=== PATIENT | male | born 1960 | race Caucasian/White ===

== ENCOUNTER 2017-04-27 09:38 | Emergency (ER) | payer OTHER ==
[2017-04-27 09:48] VITALS: O2SAT 95
--- NOTE | 2017-04-27 09:59 | EDPHY ---
H & P Stated Complaint: Pulled muscle in L hip 1 wk ago on inversion table Time Seen by Provider: 04/27/17 09:58 - Personal History Current Tetanus Diphtheria and Acellular Pertussis (TDAP): Yes - Medical/Surgical History Other PMH: gout - Social History Smoking Status: Never smoked Constitutional: Initial Vital Signs Temperature (C) 36.6 C 04/27/17 09:45 Heart Rate 90 04/27/17 09:45 Respiratory Rate 16 04/27/17 09:45 Blood Pressure 120/99 H 04/27/17 09:45 O2 Sat (%) 95 04/27/17 09:45 O2 Delivery Mode Room Air Allergies/Adverse Reactions: No Allergies [NKDA] Allergy (Verified 04/27/17 09:46) Home Medications: Medication Instructions Recorded Allopurinol [Allopurinol 100 MG 100 mg PO DAILY 04/27/17 (*)] Medical Decision Making - Diagnostics Imaging Results: Imaging Impressions Lumbar Spine MRI 04/27/17 10:08 Impression: Multilevel degenerative disk and degenerative joint disease in the lumbar spine. Concerning the left radiculopathy, there appears to be an extrusion or free fragment at L4-L5 causing significant encroachment on the L4 nerve root at the lateral recess and medial aspect of the neural foramina. Please see other levels of encroachment as detailed above. Also of note is there is a transitional vertebra at the lumbosacral junction. This is numbered as if there is partial lumbarization of S1. Correlation to radiography of the thoracic and lumbar spine films to document levels would be helpful. Results called and discussed with Dr. Navid Jones, on April 27, 2017 at 1308 hours. Imaging: Discussed imaging studies w/ outbound call center representative Radiologist, I viewed and interpreted images myself ED Course/Re-evaluation: CHIEF COMPLAINT: Left hip and thigh pain HISTORY OF PRESENT ILLNESS: The patient is a 56 y/o male arriving with his complaining of severe acute onset left hip pain after using an inversion table one week ago, that worsened yesterday. He has a history of right-sided sciatica that has improved with stretching exercises on his inversion table and chiropractic treatment. He had severe left hip pain after stretching on the inversion table a week ago that initially left him unable to walk, but was slowly improving. Yesterday, he tripped on the carpet causing his symptoms to worsen acutely. He has been unable to walk today due to pain. Pain is primarily located along his left lateral and anterior thigh. He denies back pain, paresthesias, weakness, or saddle anesthesia. REVIEW OF SYSTEMS: A 10 point review of systems was performed and is negative with the exception of the elements mentioned in the history of present illness. PHYSICAL EXAM: HR, BP, O2 Sat, RR. Temp noted General Appearance: Alert, well hydrated, appropriate, and appears in pain. Head: Atraumatic without scalp tenderness or obvious injury Eyes: Pupils equal, round, reactive to light and accommodation, EOMI, no trauma , no injection. Nose: Atraumatic, no rhinorrhea, clear. Throat: Mucus membranes moist. Neck: Supple, nontender, no lymphadenopathy. Respiratory: No retractions, no distress, no wheezes, and no accessory muscle use. Lungs are clear to auscultation bilaterally. Cardiovascular: Regular rate and rhythm, no murmurs, rubs, or gallops. Good capillary refill all extremities. Gastrointestinal: Abdomen is soft, nontender, non-distended, no masses, no rebound, no guarding, no peritoneal signs. Musculoskeletal: Normal active ROM of all extremities, atraumatic. Neurological: Alert, appropriate, and interactive. Nonfocal neuro exam. Skin: No rashes, good turgor, no nodules on palpation. Past medical history: Sciatica Past surgical history: noncontributory Family history: noncontributory Social history: at bedside DIAGNOSTICS/PROCEDURES/CRITICAL CARE TIME: Lumbar MRI: L4-L5 disc herniation to the left DIFFERENTIAL DIAGNOSIS: The differential diagnosis for the patient's leg pain included but was not limited to musculoskeletal pain, epidural abscess, herniated disk, spinal fracture, and intra-abdominal causes including urinary system. MEDICAL DECISION MAKING: This is a 56 y/o male with a history of right-sided sciatica who presents with a one-week history of left hip and thigh pain after using an inversion table. He is neurologically intact and his pain is not reproducible with palpation. His symptoms are consistent with lumbar radiculopathy, but he does not have associated back pain. Plan for IV, lumbar MRI, and symptom management. 1mg IV Dilaudid, 30mg IV Toradol administered. 1120: Patient continues to have pain. 5mg IV Ketamine administered. MRI pending. 1319: Reassessed patient and discussed imaging results. He has an acute L4-L5 left-sided disc herniation. He is feeling more comfortable after pain medication. Neuro exam remains normal. He will be discharged with standard radiculopathy instructions and scripts for Medrol and OxyIR. Referred to neurosurgeon as needed. Strict return precautions given. He is comfortable with this plan. - Data Points Laboratory Results: Laboratory Results 04/27/17 10:00 04/27/17 10:00 04/27/17 04/27/17 04/27/17 11: 10:00 10:00 WBC 5.33 10^3/uL 10^3/uL (3.80-9.50) RBC 5.17 10^6/uL 10^6/uL (4.40-6.38) Hgb 17.4 g/dL g/dL (13.7-17.5) Hct 47.4 % % (40.0-51.0) MCV 91.7 fL fL (81.5-99.8) MCH 33.7 pg pg (27.9-34.1) MCHC 36.7 g/dL g/dL (32.4-36.7) RDW 12.2 % % (11.5-15.2) Plt Count 126 10^3/uL L 10^3/uL (150-400) MPV 9.4 fL fL (8.7-11.7) Neut % (Auto) 74.3 % H % (39.3-74.2) Lymph % (Auto) 13.7 % L % (15.0-45.0) [place] % (Auto) 8.6 % % (4.5-13.0) Eos % (Auto) 2.6 % % (0.6-7.6) Baso % (Auto) 0.6 % % (0.3-1.7) Nucleat RBC Rel Count 0.0 % % (0.0-0.2) Absolute Neuts (auto) 3.96 10^3/uL 10^3/uL (1.70-6.50) Absolute Lymphs (auto) 0.73 10^3/uL L 10^3/uL (1.00-3.00) Absolute Monos (auto) 0.46 10^3/uL 10^3/uL (0.30-0.80) Absolute Eos (auto) 0.14 10^3/uL 10^3/uL (0.03-0.40) Absolute Basos (auto) 0.03 10^3/uL 10^3/uL (0.02-0.10) Absolute Nucleated RBC 0.00 10^3/uL 10^3/uL (0-0.01) Immature Gran % 0.2 % % (0.0-1.1) Immature Gran # 0.01 10^3/uL 10^3/uL (0.00-0.10) Sodium 141 mEq/L mEq/L (134-144) Potassium 3.9 mEq/L mEq/L (3.5-5.2) Chloride 106 mEq/L mEq/L (97-110) Carbon Dioxide 20 mEq/l L mEq/l (22-31) Anion Gap 15 mEq/L mEq/L (8-16) BUN 13 mg/dL mg/dL (7-23) Creatinine 0.9 mg/dL mg/dL (0.7-1.3) Estimated GFR > 60 Glucose 107 mg/dL H mg/dL (70-100) Calcium 9.8 mg/dL mg/dL (8.5-10.4) Urine Color YELLOW Urine Appearance CLEAR Urine pH 7.0 (5.0-7.5) Ur Specific [place] 1.017 (1.002-1.030) Urine Protein NEGATIVE (NEGATIVE) Urine Ketones TRACE H (NEGATIVE) Urine Blood NEGATIVE (NEGATIVE) Urine Nitrate NEGATIVE (NEGATIVE) Urine Bilirubin NEGATIVE (NEGATIVE) Urine Urobilinogen NEGATIVE EU EU (0.2-1.0) Ur Leukocyte Esterase NEGATIVE (NEGATIVE) Urine RBC NONE SEEN /hpf /hpf (0-3) Urine WBC 1-3 /hpf /hpf (0-3) Ur Epithelial Cells NONE SEEN /lpf /lpf (NONE-1+) Urine Mucus TRACE /lpf /lpf (NONE-1+) Urine Glucose NEGATIVE (NEGATIVE) Medications Given: Discontinued Medications Hydromorphone HCl (Dilaudid) 1 mg IVP EDNOW ONE Stop: 04/27/17 10:07 Last Admin: 04/27/17 10:22 Dose: 1 mg Hydromorphone HCl (Dilaudid) 1 mg IVP EDNOW ONE Stop: 04/27/17 11:52 Last Admin: 04/27/17 11:57 Dose: 1 mg Hydromorphone HCl (Dilaudid) 1 mg IVP EDNOW ONE Stop: 04/27/17 11:59 Last Admin: 04/27/17 12:03 Dose: 1 mg Ketamine HCl (Ketamine) 5 mg IVP EDNOW ONE Stop: 04/27/17 11:25 Last Admin: 04/27/17 11:38 Dose: 5 mg Ketorolac Tromethamine (Toradol) 30 mg IVP EDNOW ONE Stop: 04/27/17 10:09 Last Admin: 04/27/17 10:22 Dose: 30 mg Departure - Departure Disposition: Home, Routine, Self-Care Clinical Impression: Lumbar radiculopathy, Herniation of intervertebral disc between L4 and L5 Condition: Good Instructions: Lumbar Disc Herniation (ED), Lumbar Radiculopathy (ED) Additional Instructions: 1. Take Medrol as prescribed. Be sure to complete the entire prescription. 2. Use Dilaudid as prescribed when needed for severe pain. 3. Follow up with Dr. Whipple, neurosurgeon, for unimproved symptoms over the next few weeks. 4. Dr. Bush, back pain specialist, is another follow up option that can offer other treatment modalities like local injections. 5. Activity as tolerated. Normal daily movement generally helps recovery. Do not lift anything until symptoms have resolved and always practice good lifting technique to protect your back. 6. Return to the ED for leg weakness or numbness, bowel or bladder incontinence , or other worsening of condition. Referrals: Shin Whipple MD [Medical Doctor] - As per Instructions NONE *PRIMARY CARE P,. [Primary Care Provider] - As per Instructions Sd Bush MD [Medical Doctor] - As per Instructions Stand Alone Forms: Work Limited Duty Report Scribed for: Navid Jones Report Scribed by: Gayla Walters Date of Report: 04/27/17 Time of Report: 10:00
[2017-04-27] MEDS ORDERED: HYDROmorphONE/DILAUDID 1 MG/ML SYR IVP ONE ×3 (10:06→11:58)
[2017-04-27] MEDS ORDERED: KETOROLAC 30 MG/1 ML SDV IVP ONE (10:08)
[2017-04-27 10:30] LABS: % IMMATURE GRANULYOCYTES 0.2 % (0.0-1.1); ABSOLUTE IMMATURE GRANULOCYTES 0.01 10^3/uL (0.00-0.10); ADD DIFF? NO; ADD MORPH? NO; ADD SCAN? NO; ATYPICAL LYMPHOCYTE FLAG 10 (0-99); FRAGMENT RBC FLAG 0 (0-99); HEMATOCRIT 47.4 % (40.0-51.0); HEMOGLOBIN 17.4 g/dL (13.7-17.5); LEFT SHIFT FLG 0 (0-99); LIPEMIA HEMOLYSIS FLAG 90 (0-99); MEAN CELL HEMOGLOBIN 33.7 pg (27.9-34.1); MEAN CELL HEMOGLOBIN CONCENTR. 36.7 g/dL (32.4-36.7); MEAN CELL VOLUME 91.7 fL (81.5-99.8); MEAN PLATELET VOLUME 9.4 fL (8.7-11.7); PLATELET CLUMPS FLAG 0 (0-99); PLATELET COUNT 126 10^3/uL (150-400); RED BLOOD CELL COUNT 5.17 10^6/uL (4.40-6.38); RED CELL DISTRIBUTION WIDTH 12.2 % (11.5-15.2)
[2017-04-27 10:53] LABS: ANION GAP 15 mEq/L (8-16); CALCIUM 9.8 mg/dL (8.5-10.4); CARBON DIOXIDE 20 mEq/l (22-31); CHLORIDE 106 mEq/L (97-110); CREATININE 0.9 mg/dL (0.7-1.3); GLOMERULAR FILTRATION RATE > 60; GLUCOSE 107 mg/dL (70-100); POTASSIUM 3.9 mEq/L (3.5-5.2); SODIUM 141 mEq/L (134-144)
[2017-04-27] MEDS ORDERED: KETAMINE 100 MG/10 ML SYR IVP ONE (11:24)
[2017-04-27 11:36] LABS: COLOR YELLOW; LEUKOCYTE ESTERASE,URINE NEGATIVE (NEGATIVE); NITRITE,URINE NEGATIVE (NEGATIVE)
[2017-04-27 11:44] LABS: MUCUS TRACE /lpf (NONE-1+)
[2017-04-27 11:45] LABS: RBC,URINE NONE SEEN /hpf (0-3)
[2017-04-27] MEDS ORDERED: HYDROmorphONE/DILAUDID 1 MG/ML SYR ONE (11:47)
[2017-04-27 11:58] VITALS: RESP 18
[2017-04-27 13:34] VITALS: BP 122/67; PULSE 71; TEMP 98.2
[2017-04-27] MEDS ORDERED: HYDROmorphONE/DILAUDID 2 MG TAB PO ONE (13:40)
== END 2017-04-27 13:46 | disposition home or self-care (01) ==
DX: M51.16 Intervertebral disc disorders with radiculopathy, lumbar region (principal)
CPT/HCPCS: 96374; J1170; J1885

== ENCOUNTER 2017-07-04 12:56 | Observation (INO) | payer OTHER ==
--- NOTE | 2017-07-04 13:43 | EDPHY ---
H & P Stated Complaint: Passed gas when urinating this a.m.;bladder discomfort;sent in for CT Time Seen by Provider: 07/04/17 13:40 HPI/ROS: HPI: This is a 56-year-old male who presents with Chief Complaint: Passing gas during urination Location: Quality: Passing gas strain urination Duration: This morning Signs and Symptoms: No dysuria, no back pain, no penile discharge, no testicular pain, no nausea, no vomiting, no abdominal pain, no urinary hesitancy Timing: Sudden, intermittent Severity: [id number] Context: Patient complains of passing gas strain urination this morning x2. He has not urinated in the last 4 hours. He completed 3 days of Flagyl and 5 days of Ciprofloxacin; last dose for diverticulitis that was diagnosed outpatient by clinical exam. No CT imaging of the abdomen and pelvis was obtained at that time. 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 Eating and drinking normally. Patient in the currently denies pain at this time. Modifying Factors: Did not call primary care provider Comment: ROS: Constitutional: No fever, no chills, no weight loss Eyes: No blurred vision Respiratory: No shortness of breath, no cough Cardiovascular: No chest pain Gastrointestinal: No nausea, no vomiting no diarrhea Genitourinary: No dysuria Extremities: No myalgias Neurologic: No weakness, no numbness Skin: No rashes Hematologic: No bruising, no bleeding MEDICAL/SURGICAL/SOCIAL HISTORY: Denies any surgical history. . Source: Patient, Family - Personal History Current Tetanus Diphtheria and Acellular Pertussis (TDAP): Unsure - Medical/Surgical History Other PMH: gout. ?diverticulitis - Social History Smoking Status: Never smoked - Physical Exam Exam: CONSTITUTIONAL: Extremely well-appearing adult white male, awake and alert, no obvious distress HEENT: Atraumatic and normocephalic, PERRL, EOMI. Tympanic membranes clear. Oropharynx clear, no exudate and moist pink mucosa. Airway patent. No lymphadenopathy. No meningismus. Cardiovascular: Normal S1/S2, regular rate, regular rhythm, without murmur rub or gallop. PULMONARY/CHEST: Symmetrical and nontender. Clear to auscultation bilaterally Good air movement. No accessory muscle usage. ABDOMEN: Soft, nondistended, nontender, no rebound, no guarding, no peritoneal signs, no masses or organomegaly. No CVAT. EXTREMITIES: 2/2 pulses, no deformities, no clubbing, no cyanosis or edema. NEUROLOGICAL: no focal neuro deficits. GCS 15. SKIN: Warm and dry, no erythema. no rash. Good capillary refill. Constitutional: Initial Vital Signs Temperature (C) 36.7 C 07/04/17 13:00 Heart Rate 75 07/04/17 13:00 Respiratory Rate 16 07/04/17 13:00 Blood Pressure 120/85 H 07/04/17 13:00 O2 Sat (%) 94 07/04/17 13:00 O2 Delivery Mode Room Air Allergies/Adverse Reactions: No Allergies [NKDA] Allergy (Verified 07/04/17 13:05) Home Medications: Medication Instructions Recorded Allopurinol [Allopurinol 100 MG 100 mg PO 07/04/17 (*)] Ciprofloxacin [Cipro] 500 mg PO 07/04/17 metroNIDAZOLE [Flagyl 250 mg (*)] 250 mg PO 07/04/17 Medical Decision Making - Diagnostics Imaging Results: Imaging Impressions Abdomen CT 07/04/17 13:38 Impression: 1. Acute severe diverticulitis of the sigmoid colon with multiple microperforations and colovesical fistula along the anterior superior left wall of the bladder. 2. No drainable abscess or bowel obstruction. 3. Incidental cholelithiasis. Recommendation: 1. Surgical consult. 2. Follow up colonoscopy when the patient's medical condition permits. Findings and recommendations discussed with Emergency Department, TOMMY Serna, at 1511 hours on July 04, 2017. Final report concurs with initial preliminary interpretation. ED Course/Re-evaluation: Labs, urinalysis, IV fluids, CT abdomen and pelvis scan ordered Afebrile and no signs of sepsis. Urine shows no signs of infection; hematuria Labs grossly unremarkable. Called by radiologist CT scan shows extensive sigmoid diverticulitis with micro perforation extending into the bladder wall consistent with a colovesical fistula 1510: ED decision to consult for admission Spoke with surgery, Dr. Molina, and Hospitalist, Dr. Lainez, who agrees to admit patient to provide further care. Differential Diagnosis: Abdominal pain including but not limited to appendicitis, cholecystitis, gastritis and urinary tract infection. - Data Points Laboratory Results: Laboratory Results 07/04/17 13:55 07/04/17 13:55 07/04/17 07/04/17 07/04/17 13:55 13:55 13:55 WBC 6.24 10^3/uL 10^3/uL (3.80-9.50) RBC 4.59 10^6/uL 10^6/uL (4.40-6.38) Hgb 14.4 g/dL g/dL (13.7-17.5) Hct 43.4 % % (40.0-51.0) MCV 94.6 fL fL (81.5-99.8) MCH 31.4 pg pg (27.9-34.1) MCHC 33.2 g/dL g/dL (32.4-36.7) RDW 12.7 % % (11.5-15.2) Plt Count 265 10^3/uL 10^3/uL (150-400) MPV 9.2 fL fL (8.7-11.7) Neut % (Auto) 66.3 % % (39.3-74.2) Lymph % (Auto) 24.0 % % (15.0-45.0) [place] % (Auto) 6.1 % % (4.5-13.0) Eos % (Auto) 2.7 % % (0.6-7.6) Baso % (Auto) 0.6 % % (0.3-1.7) Nucleat RBC Rel Count 0.0 % % (0.0-0.2) Absolute Neuts (auto) 4.13 10^3/uL 10^3/uL (1.70-6.50) Absolute Lymphs (auto) 1.50 10^3/uL 10^3/uL (1.00-3.00) Absolute Monos (auto) 0.38 10^3/uL 10^3/uL (0.30-0.80) Absolute Eos (auto) 0.17 10^3/uL 10^3/uL (0.03-0.40) Absolute Basos (auto) 0.04 10^3/uL 10^3/uL (0.02-0.10) Absolute Nucleated RBC 0.00 10^3/uL 10^3/uL (0-0.01) Immature Gran % 0.3 % % (0.0-1.1) Immature Gran # 0.02 10^3/uL 10^3/uL (0.00-0.10) Sodium 142 mEq/L mEq/L (134-144) Potassium 3.8 mEq/L mEq/L (3.5-5.2) Chloride 102 mEq/L mEq/L (97-110) Carbon Dioxide 25 mEq/l mEq/l (22-31) Anion Gap 15 mEq/L mEq/L (8-16) BUN 9 mg/dL mg/dL (7-23) Creatinine 0.8 mg/dL mg/dL (0.7-1.3) Estimated GFR > 60 Glucose 89 mg/dL mg/dL (70-100) Calcium 9.6 mg/dL mg/dL (8.5-10.4) Total Bilirubin 0.7 mg/dL mg/dL (0.1-1.4) Conjugated Bilirubin 0.4 mg/dL mg/dL (0.0-0.5) Unconjugated Bilirubin 0.3 mg/dL mg/dL (0.0-1.1) AST 56 IU/L IU/L (17-59) ALT 61 IU/L IU/L (21-72) Alkaline Phosphatase 83 IU/L IU/L (38-126) Total Protein 7.6 g/dL g/dL (6.3-8.2) Albumin 4.1 g/dL g/dL (3.5-5.0) Lipase 60 IU/L IU/L (23-300) Urine Color YELLOW Urine Appearance CLEAR Urine pH 6.0 (5.0-7.5) Ur Specific [place] 1.010 (1.002-1.030) Urine Protein NEGATIVE (NEGATIVE) Urine Ketones NEGATIVE (NEGATIVE) Urine Blood NEGATIVE (NEGATIVE) Urine Nitrate NEGATIVE (NEGATIVE) Urine Bilirubin NEGATIVE (NEGATIVE) Urine Urobilinogen NEGATIVE EU EU (0.2-1.0) Ur Leukocyte Esterase NEGATIVE (NEGATIVE) Urine Glucose NEGATIVE (NEGATIVE) Departure - Departure Disposition: [facility] Acute Clinical Impression: Sigmoid diverticulitis, Colovesical fistula
[2017-07-04] MEDS ORDERED: IOPAMIDOL (ISOVUE-300) 100 ML BTL ONE (13:59)
[2017-07-04 14:05] LABS: % IMMATURE GRANULYOCYTES 0.3 % (0.0-1.1); ABSOLUTE IMMATURE GRANULOCYTES 0.02 10^3/uL (0.00-0.10); ADD DIFF? NO; ADD MORPH? NO; ADD SCAN? NO; ATYPICAL LYMPHOCYTE FLAG 20 (0-99); FRAGMENT RBC FLAG 0 (0-99); HEMATOCRIT 43.4 % (40.0-51.0); HEMOGLOBIN 14.4 g/dL (13.7-17.5); LEFT SHIFT FLG 0 (0-99); LIPEMIA HEMOLYSIS FLAG 80 (0-99); MEAN CELL HEMOGLOBIN 31.4 pg (27.9-34.1); MEAN CELL HEMOGLOBIN CONCENTR. 33.2 g/dL (32.4-36.7); MEAN CELL VOLUME 94.6 fL (81.5-99.8); MEAN PLATELET VOLUME 9.2 fL (8.7-11.7); PLATELET CLUMPS FLAG 0 (0-99); PLATELET COUNT 265 10^3/uL (150-400); RED BLOOD CELL COUNT 4.59 10^6/uL (4.40-6.38); RED CELL DISTRIBUTION WIDTH 12.7 % (11.5-15.2)
[2017-07-04 14:15] LABS: ALANINE AMINOTRANSFERASE 61 IU/L (21-72); ALBUMIN 4.1 g/dL (3.5-5.0); ALKALINE PHOSPHATASE 83 IU/L (38-126); ANION GAP 15 mEq/L (8-16); ASPARTATE AMINOTRANSFERASE 56 IU/L (17-59); BILIRUBIN,TOTAL 0.7 mg/dL (0.1-1.4); BILIRUBIN-CONJUGATED 0.4 mg/dL (0.0-0.5); BILIRUBIN-UNCONJUGATED 0.3 mg/dL (0.0-1.1); CALCIUM 9.6 mg/dL (8.5-10.4); CARBON DIOXIDE 25 mEq/l (22-31); CHLORIDE 102 mEq/L (97-110); CREATININE 0.8 mg/dL (0.7-1.3); GLOMERULAR FILTRATION RATE > 60; GLUCOSE 89 mg/dL (70-100); POTASSIUM 3.8 mEq/L (3.5-5.2); SODIUM 142 mEq/L (134-144); TOTAL PROTEIN 7.6 g/dL (6.3-8.2)
[2017-07-04 14:26] LABS: COLOR YELLOW; LEUKOCYTE ESTERASE,URINE NEGATIVE (NEGATIVE); NITRITE,URINE NEGATIVE (NEGATIVE)
[2017-07-04] MEDS ORDERED: NS 1,000 ML IV ONE (15:14)
[2017-07-04] MEDS ORDERED: ACETAMINOPHEN 325 MG TAB PO PRN (15:20)
[2017-07-04] MEDS ORDERED: ONDANSETRON 4 MG/2 ML VIAL IVP PRN (15:20)
[2017-07-04] MEDS ORDERED: ONDANSETRON DISINTEGRATING 4 MG TAB PO PRN (15:20)
[2017-07-04] MEDS ORDERED: NS 1,000 ML IV SCH (15:30)
[2017-07-04] MEDS ORDERED: levOFLOXACIN 750 MG/DEXTROSE/150 ML BAG IV ONE (15:48)
--- NOTE | 2017-07-04 15:59 | PDCONSULT ---
Analytics Senior Manager Note: CC: pneumaturia HPI: 56 y/o male treated for diverticulitis as an outpatient by Dr. Childs, completed a 5 day course of Cipro and Flagyl and then developed pneumaturia today. He came to the ED and a CT scan showed diverticulitis and colovesical fistula. Surgical consultation was requested. Keven reports feeling better since starting his antibiotics and has had no fever. His bowel movements have been formed and soft since starting Metamucil last week. 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 FH: Father had prostate CA ROS: denies hematochezia, melena, weight loss, prior attacks of diverticulitis- Keven has never had a colonoscopy + back pain with recent injection of "steroids" at L5 PE: T 36.7 P 75 BP 120/68 R 16 WDWN male in NAD abd: soft/+BS, mild LLQ and suprapubic tenderness with palpable mass no guarding, no rebound CT reviewed with patient on PACS: sigmoid diverticulitis with extraluminal air and AF level in bladder consistent with a colovesical fistula, moderate proximal fecal loading and additional diverticuli up to the mid descending colon , incidental 2 cm gallstone no drainable abscess, no free fluid or free air. wbc 6.8 HCT 43.4 Imp: 1. sigmoid diverticulitis with perforation and secondary colovesical fistula 2. gallstone Rec: We discussed the management options including: immediate surgery with sigmoid resection and temporary diverting colostomy and subsequent takedown ( two stage procedure) vs. medical management of his diverticulitis and delayed one stage resection and anastomosis with repair of the vesical fistula. Since he has never had a colonoscopy, I would recommend doing that before proceeding with surgery. We also discussed the possibility that medical therapy could fail and he could go on to develop peritonitis and require emergent surgery and diverting colostomy. I advised a low fiber diet and added Miralax to his regimen. I spent 60 minutes in consultation and greater than 50% in education, reviewing films and management options. I recommended consultation with Dr. Anglin and Dr. Willis. Fátima Molina MD, FACS
--- NOTE | 2017-07-04 17:13 | GHP ---
[f rep st] HISTORY AND PHYSICAL DATE OF ADMISSION: 07/04/2017 CHIEF COMPLAINT: Passing gas from his penis. HISTORY OF PRESENT ILLNESS: A 56-year-old male with no significant past medical history who reports a month of intermittent fevers and chills, then associated with some left lower quadrant pain. The smitha akbar was seen in the outpatient clinic 5 days ago and diagnosed clinically with diverticulitis, sta rted on ciprofloxacin and Flagyl. Patient completed his 5-day course of antibiotics with improvement in both his fevers and his abdominal discomfort. Then this morning while up and urinating, passed g as while peeing. The patient presented to the emergency department for evaluation. He denies any he adaches, vision changes, dysphagia. Abdominal pain in the left lower quadrant has resolved; however, now he has more suprapubic pain. Denies any nausea or vomiting. Denies chest pain. Denies shortne ss of breath. Denies dysuria, hematuria, or fecal matter in his urine. Denies lower extremity edema , myalgias, arthralgias, and reports that the intermittent fevers he was having have resolved. PAST MEDICAL HISTORY: Gout. SOCIAL HISTORY: Negative for tobacco. Drinks daily alcohol. Denies illicit drugs. Uses marijuana occasionally. FAMILY HISTORY: Positive for gout, negative for colon cancer. REVIEW OF SYSTEMS: A 10-point review of systems is negative with the exception of that reported in t he HPI. ADVANCE DIRECTIVES: Patient is full COR, full tube. His fiancee would be his medical decision maker . PHYSICAL EXAMINATION: VITAL SIGNS: Blood pressure 124/83, heart rate 70, respiratory rate 16, 96% o n room air, 36.8. GENERAL: This is a healthy-appearing male in no acute distress. HEENT: Notable for moist mucous membranes. Eye exam is negative for any icterus. CARDIAC: Patient is regular rate and rhythm. PULMONARY: Clear to auscultation bilaterally. GASTROINTESTINAL: Positive bowel sound s. ABDOMEN: Soft. Patient is only mildly tender to palpation in the suprapubic area. No rebound o r guarding. MUSCULOSKELETAL: Negative for any lower extremity edema. SKIN: Negative for any rashe s. NEUROLOGIC: He is alert and oriented x3. PSYCHIATRIC: Very pleasant and cooperative on intervi ew and examination. DATA: White count 6.2, hematocrit 43.4, creatinine 0.8. Urinalysis is negative. CT of the abdomen, which I personally reviewed and interpreted, shows active diverticulitis with microperforations and a colovesical fistula. No drainable abscesses are noted by Radiology. ASSESSMENT AND PLAN: This is a 56-year-old male presenting with gas while urinating. 1. Acute severe diverticulitis. The patient has had symptoms of fever and abdominal discomfort for many weeks, has completed a 5-day course of antibiotics with some clinical improvement, but new sympt oms of air passing from his penis. Imaging studies confirmed diverticulitis as well as colovesical f istula from microperforation. I have reviewed the case with Surgery. The patient will be treated wi th IV antibiotics this evening and then complete a full 2-week course of antibiotics. They request c olonoscopy preoperatively and would anticipate partial colon resection and repair of the fistula in a pproximately 6 weeks after the infection has been completely treated. There is no need for emergent intervention as the patient does not have an elevation in his white count, fever, or sepsis physiolog y. 2. Gout. Can continue patient's home medications. He has no acute complaints of his joints. 3. Prophylaxis with Lovenox. 4. Diet regular. DISPOSITION: If the patient tolerates food overnight without complication and has no recurrent fever s, can discharge in the morning with oral antibiotics to complete a full 14-day course and have outpa tient followup with both Gastroenterology and General Surgery. I have discussed the case with Dr. Debra moya. Patient will be admitted, given IV antibiotics this evening and likely discharged if no complica tions develop tomorrow. /[id number]/MODL
[2017-07-04] MEDS: POLYETHYLENE GLYCOL 3350 17 GM PKT PO SCH (19:58)
[2017-07-04] MEDS ORDERED: FLU VACC QS 2017-18 (3YR+)/PF 0.5 ML SYR (FLUARIX QUAD) IM ONE ×2 (20:13→21:00)
[2017-07-05 05:47] LABS: % IMMATURE GRANULYOCYTES 0.7 % (0.0-1.1); ABSOLUTE IMMATURE GRANULOCYTES 0.04 10^3/uL (0.00-0.10); ADD DIFF? NO; ADD MORPH? NO; ADD SCAN? NO; ATYPICAL LYMPHOCYTE FLAG 20 (0-99); FRAGMENT RBC FLAG 0 (0-99); HEMATOCRIT 37.4 % (40.0-51.0); HEMOGLOBIN 12.4 g/dL (13.7-17.5); LEFT SHIFT FLG 0 (0-99); LIPEMIA HEMOLYSIS FLAG 80 (0-99); MEAN CELL HEMOGLOBIN 31.1 pg (27.9-34.1); MEAN CELL HEMOGLOBIN CONCENTR. 33.2 g/dL (32.4-36.7); MEAN CELL VOLUME 93.7 fL (81.5-99.8); MEAN PLATELET VOLUME 9.1 fL (8.7-11.7); PLATELET CLUMPS FLAG 0 (0-99); PLATELET COUNT 212 10^3/uL (150-400); RED BLOOD CELL COUNT 3.99 10^6/uL (4.40-6.38); RED CELL DISTRIBUTION WIDTH 12.8 % (11.5-15.2)
[2017-07-05 06:10] LABS: ANION GAP 8 mEq/L (8-16); CALCIUM 9.1 mg/dL (8.5-10.4); CARBON DIOXIDE 26 mEq/l (22-31); CHLORIDE 105 mEq/L (97-110); CREATININE 0.9 mg/dL (0.7-1.3); GLOMERULAR FILTRATION RATE > 60; GLUCOSE 89 mg/dL (70-100); POTASSIUM 4.2 mEq/L (3.5-5.2); SODIUM 139 mEq/L (134-144)
[2017-07-05 08:22] VITALS: BP 120/85; PULSE 72; RESP 16; TEMP 98.2; O2SAT 93
[2017-07-05] MEDS: POLYETHYLENE GLYCOL 3350 17 GM PKT PO SCH (08:47)
[2017-07-05] MEDS ORDERED: ALLOPURINOL 300 MG TAB PO SCH (09:00)
[2017-07-05] MEDS ORDERED: ENOXAPARIN 40 MG/0.4 ML SYR SC SCH (09:00)
[2017-07-05] MEDS ORDERED: PSYLLIUM METAMUCIL 1 PKT PO SCH (09:00)
--- NOTE | 2017-07-05 09:21 | PDCONSULT ---
Mainframe Systems Engineer Note: Surgery S- resting comfortably/soft BM last PM O- AFVSS Abd: soft/+BS, mild LLQ + suprapubic tenderness wbc 6.0 UA neg Imp: pneumaturia secondary to diverticulitis/ Rec: transition to po meds (Levaquin/Flagyl) FU my office next week continue Abx for 14 day course /GI consults as outpatient I anticipate sigmoid resection/repair of bladder fistula as a one stage procedure in 6 - 8 weeks. Fátima Molina MD, FACS
[2017-07-05] MEDS ORDERED: metroNIDAZOLE 500 MG TAB PO SCH (14:00)
--- NOTE | 2017-07-05 14:04 | ASMTCMCOM ---
CM Note CM Note Notes: Spoke w/RN, anticipate will dc home w/support of family when medically stable. CM available for any changes. Date Signed: 07/05/2017 02:03 PM Electronically Signed By:Elena Heredia RN
--- NOTE | 2017-07-05 17:29 | ASDISCHSUM ---
Discharge Information Plan Status:Home with No Needs Medically Cleared to Leave: Discharge Date:07/05/2017 02:04 PM CM D/C Disposition:Home, Routine, Self-Care ADT D/C Disposition:Home, Routine, Self-Care Projected Discharge Date:07/05/2017 02:04 PM Transportation at D/C:Family Discharge Delay Reason: Follow-Up Date:07/05/2017 02:04 PM Discharge Slot: Final Diagnosis: Placement Information Patient Contact Information Contact Name:SANJAY Relationship:Daughter Address: Work Phone: City: [place] Phone: State/Zip Code: Email: Financial Information Financial Class:HMO and PPO Plans Primary Plan Desc:RICK PPO Primary Plan Number:[id number] Secondary Plan Desc: Secondary Plan Number: Assessment Information [facility] CM Progress Note CM Note CM Note Notes: Spoke w/RN, anticipate will dc home w/support of family when medically stable. CM available for any changes. Date Signed: 07/05/2017 02:03 PM Electronically Signed By:Elena Heredia RN Intervention Information Intervention Type:*Incorrect Registration Date of Service:07/04/2017 06:35 PM Patient Type:Observation Staff Member:TRISH Rodriguez, Bárbara Hours:0.25 Discipline: Severity:1 (0-1 Hours) Comment:Registered inpatient, admit order writ for observatyon status.
== END 2017-07-05 14:04 | disposition home or self-care (01) ==
LOC: INTOOBSV 15:20 → F3E 16:11
PROVIDERS: ADMIT Hospitalist; ATTEND Hospitalist
DX: K57.20 Diverticulitis of large intestine with perforation and abscess without bleeding (principal); N32.1 Vesicointestinal fistula; R39.89 Other symptoms and signs involving the genitourinary system; M48.06 Spinal stenosis, lumbar region; Z23 Encounter for immunization; M10.9 Gout, unspecified
CPT/HCPCS: 74177; 90471; G0378; G0008; J1650; J1956; Q9967

== ENCOUNTER 2017-08-28 09:20 | Inpatient (IN) | payer OTHER ==
[2017-08-28] MEDS ORDERED: BUPIVACAINE 0.5% 30 ML SDV ONE (09:34)
[2017-08-28] MEDS ORDERED: POLYMYXIN B SULFATE 500,000 UNIT/10 ML SYR IRR ONE (09:35)
[2017-08-28] MEDS ORDERED: BACITRACIN 50,000 UNITS/10 ML SYR IRR ONE (09:35)
[2017-08-28] MEDS ORDERED: LR 1,000 ML IV ONE (09:46)
[2017-08-28] MEDS ORDERED: MIDAZOLAM 2 MG/2 ML VIAL IVP ONE (10:30)
--- NOTE | 2017-08-28 10:35 | PDANEPAE ---
ANE History of Present Illness colovesical fistula s/f colectomy ANE Past Medical History - Cardiovascular History Hx Hypertension: No Hx Arrhythmias: No Hx Chest Pain: No Hx Coronary Artery / Peripheral Vascular Disease: No Hx CHF / Valvular Disease: No Hx Palpitations: No - Pulmonary History Hx COPD: No Hx Asthma/Reactive Airway Disease: No Hx Recent Upper Respiratory Infection: No Hx Oxygen in Use at Home: No Hx Sleep Apnea: No Sleep Apnea Screening Result - Last Documented: Negative - Neurologic History Hx Cerebrovascular Accident: No Hx Seizures: No Hx Dementia: No Neurologic History Comment: herniated disc - Endocrine History Hx Diabetes: No Obesity: yes Endocrine History Comment: Gout-well controlled on Allopurinol - Renal History Hx Renal Disorders: No - Liver History Hx Hepatic Disorders: No - Neurological & Psychiatric Hx Hx Neurological and Psychiatric Disorders: No - Cancer History Hx Cancer: No - Congenital Disorder History Hx Congenital Disorders: No - GI History Hx Gastrointestinal Disorders: Yes Gastrointestinal History Comment: diverticulitis - Other Health History Other Health History: wears glasses - Chronic Pain History Chronic Pain: No - Surgical History Prior Surgeries: 09/17/09 left 4th finger orif with gil. knee surgery 1980- scope ANE Review of Systems Review of Systems: - Exercise capacity METS (RN): 4 METS ANE Patient History - Allergies Allergies/Adverse Reactions: No Allergies [NKDA] Allergy (Verified 08/11/17 10:35) - Home Medications Home medications: home medication list seen and reviewed Home Medications: Allopurinol [Allopurinol 300 MG (RX)] 300 mg PO DAILY 07/04/17 [Last Taken 1 Week Ago ~08/21/17] Multivitamins [Multivitamin (*)] 1 each PO DAILY 08/06/17 [Last Taken 1 Week Ago ~08/21/17] - NPO status NPO Status: no food or drink >8 hours NPO Since - Liquids (Date): 08/27/17 NPO Since - Liquids (Time): 20:00 NPO Since - Solids (Date): 08/24/17 NPO Since - Solids (Time): 20:00 - Anes Hx Anes Hx: no prior problems - Smoking Hx Smoking Status: Never smoked - Alcohol Use Alcohol Use: Occasionally - Family Anes Hx Family Anes Hx: none Family Hx Anesthesia Complications: none ANE Labs/Vital Signs - Vital Signs Blood Pressure: 117/91 Heart Rate: 95 Respiratory Rate: 16 O2 Sat (%): 95 Height: 193.04 cm Weight: 92.986 kg ANE Physical Exam - Airway Neck exam: FROM Mallampati Score: Class 1 Mouth exam: normal dental/mouth exam - Pulmonary Pulmonary: no respiratory distress - Cardiovascular Cardiovascular: regular rate and rhythym - ASA Status ASA Status: II ANE Anesthesia Plan Anesthesia Plan: general endotracheal anesthesia (R/B/A explained and agrees to proceed)
[2017-08-28] MEDS ORDERED: DEXAMETHASONE 4 MG/ML VIAL ONE ×2 (10:46)
[2017-08-28] MEDS ORDERED: LIDOCAINE 2% 100 MG/5 ML SYR ONE (10:46)
[2017-08-28] MEDS ORDERED: PROPOFOL/EMULSION 500 MG/50 ML BOTTLE IV ONE (10:46)
[2017-08-28] MEDS ORDERED: fentaNYL 100 MCG/2 ML INJ ONE ×3 (10:46→15:58)
[2017-08-28] MEDS ORDERED: ROCURONIUM 100 MG/10 ML VIAL ONE (10:46)
[2017-08-28] MEDS ORDERED: cefOXitin SODIUM 2 GM in D5W 100 ML IV ONE (10:57)
[2017-08-28] MEDS ORDERED: ONDANSETRON 4 MG/2 ML VIAL ONE (11:03)
[2017-08-28] MEDS ORDERED: BUPIVACAINE 0.25% 30 ML SDV ONE (11:10)
[2017-08-28] MEDS ORDERED: PROPOFOL 200 MG/20 ML VIAL ONE ×3 (12:00→13:38)
[2017-08-28] MEDS ORDERED: ROCURONIUM 50 MG/5 ML VIAL ONE (12:52)
[2017-08-28] MEDS ORDERED: SUGAMMADEX SODIUM 200 MG/2 ML VIAL IVP ONE (14:18)
[2017-08-28] MEDS ORDERED: DEXAMETHASONE 4 MG/ML VIAL IVP PRN (14:37)
[2017-08-28] MEDS ORDERED: MEPERIDINE 25 MG/ML SYR IVP PRN (14:37)
[2017-08-28] MEDS ORDERED: ACETAMINOPHEN 500 MG TAB PO PRN (14:37)
[2017-08-28] MEDS ORDERED: ALBUTEROL 3 ML DEYVIAL IH PRN (14:37)
[2017-08-28] MEDS ORDERED: METOCLOPRAMIDE 10 MG/2 ML VIAL IVP PRN (14:37)
[2017-08-28] MEDS ORDERED: HYDROCODONE/APAP 5/325 TAB PO PRN (14:37)
[2017-08-28] MEDS ORDERED: PROMETHAZINE HCL 25 MG/ML INJ IVP PRN (14:37)
[2017-08-28] MEDS ORDERED: NALOXONE HCL 0.4 MG/ML INJ IVP PRN (14:37)
[2017-08-28] MEDS ORDERED: LABETALOL HCL 50 MG/10 ML SYR IVP PRN (14:37)
[2017-08-28] MEDS ORDERED: OXYCODONE/APAP 5/325 TAB PO PRN (14:37)
[2017-08-28] MEDS ORDERED: LR 500 ML IV PRN (14:37)
[2017-08-28] MEDS ORDERED: ONDANSETRON 4 MG/2 ML VIAL IVP PRN ×2 (14:37→14:54)
--- NOTE | 2017-08-28 14:38 | POSTANESTH ---
Post Anesthetic Evaluation Cardiovascular Status: Normal, Stable Respiratory Status: Normal, Stable Level of Consciousness/Mental Status: Can Participate in Eval Pain Control: Adequate, Prn Tx Ordered Nausea/Vomiting Control: Adequate, Prn Tx Ordered Complications Possibly Related to Anesthesia: None Noted
--- NOTE | 2017-08-28 14:53 | POSTOPPROG ---
Post Op Note Date of Operation: 08/28/17 Surgeon: Wei Molina (, FACS) Electronic Heat Seal Operator: Benjamin Willis MD Anesthesiologist: Johan Moody MD Anesthesia: GET(General Endotracheal) Pre-op Diagnosis: colovesical fistula Post-op Diagnosis: same Procedure: lap assisted sigmoid colectomy Findings: smoldering diverticulitis Inf/Abcess present in the surg proc area at time of surgery?: Yes Depth: Organ Space EBL: 100-500 (200ml)
[2017-08-28] MEDS: fentaNYL 100 MCG/2 ML INJ IVP PRN ×3 (14:59→16:00)
[2017-08-28] MEDS ORDERED: LORazepam 2 MG/ML INJ ONE (15:13)
[2017-08-28] MEDS: LORazepam 2 MG/ML INJ IVP PRN ×3 (15:17→23:22)
[2017-08-28 16:01] LABS: HEMATOCRIT 41.7 % (40.0-51.0); HEMOGLOBIN 14.6 g/dL (13.7-17.5)
[2017-08-28] MEDS: cefOXitin SODIUM 2 GM in D5W 100 ML IV SCH ×2 (17:00→23:25)
[2017-08-28] MEDS: D5W 1/2 NS W/ 20 KCl/L 1,000 ML IV SCH (17:06)
[2017-08-28] MEDS: HYDROmorphone HCL/NS/PF 0.4 MG/2 ML SYR IVP PRN ×5 (17:07→23:22)
[2017-08-28] MEDS ORDERED: hydrALAZINE 20 MG/ML VIAL IVP PRN (17:40)
--- NOTE | 2017-08-28 18:00 | SOAPPROG ---
Downtime Inpatient MD Late Entry SOAP Note: Keven is resting more comfortably/visiting with his family BP is running high, VSS Abd: surgical sites uncomplicated HCT: 41.7% Imp: s/p lap sigmoid colectomy/repair of bladder fistula Rec: check coags in AM. If no worrisome changes start pharma VTE prophylaxis continue SCDs sips of clear liquids until bowel function returns. S MD Tracy, FACS
--- NOTE | 2017-08-28 20:08 | GOP ---
[f rep st] OPERATIVE REPORT DATE OF OPERATION: 08/28/2017 SURGEON: Wei Molina MD, FACS HOGSHEAD COOPER: Benjamin Willis MD ANESTHESIA: General endotracheal. ANESTHESIOLOGIST: Johan Moody MD PREOPERATIVE DIAGNOSIS: 1. Colovesical fistula. 2. Diverticulitis. POSTOPERATIVE DIAGNOSIS: 1. Colovesical fistula. 2. Diverticulitis. PROCEDURE PERFORMED: 1. Laparoscopic sigmoid colectomy with primary colocolostomy. 2. Repair of bladder fistula (Dr. Benjamin Willis). FINDINGS: Persistent inflammatory changes of the colon consistent with subacute and chronic diverticulitis. Fistula tract to the left dome of the bladder and inflamed segment of sigmoid colon resected and submitted for permanent section. ESTIMATED BLOOD LOSS: 200 cc. DESCRIPTION OF PROCEDURE: After informed consent was obtained, the patient was brought to the operating room and placed under general anesthesia. He was positioned in lithotomy, carefully padding all pressure points. The right arm was tucked. The left arm was extended on an arm board. A Cota catheter was placed before proceeding. The abdomen and perineum were prepped and draped in the usual sterile fashion. Before proceeding, a time-out and identification of the patient was performed. The patient received 2 g of Mefoxin within 30 minutes of cut time and had undergone mechanical as well as antibiotic bowel preparation preoperatively. A supraumbilical incision was made after infiltrating the skin and subcutaneous tissues with 0.25% Marcaine. Dissection was carried out down to an umbilical hernial defect and this was dissected into the peritoneum and under direct visualization a 12 mm port was established. The fascia was secured with 0 Vicryl sutures as the hernial defect was larger than the port. A pneumoperitoneum was established with CO2 gas to a pressure of 15 mmHg. The peritoneal cavity was visualized with a 5 mm 30 degree scope. Additional 5 mm ports were placed in the right lower quadrant and left lower quadrant. This allowed introduction of atraumatic grasping forceps and combination of blunt dissection and dissection with the Harmonic Scalpel was used to free the sigmoid colon from the anterior abdominal wall where it was adherent. The tissues were very friable and there was a small amount of purulent fluid near the epicenter of the diverticulitis between the colon and the anterior abdominal wall. As this was dissected away from the anterior abdominal wall, it was left attached to the bladder. These 2 attachments were bluntly and the sigmoid colon swept to the right. The bladder fistula tract was identified and subsequently repaired laparoscopically by Dr. Benjamin Willis, to be dictated as a separate operative report. After this was completed, the sigmoid colon mesentery was taken down. The inferior mesenteric artery and vein were identified. These were dispatched with a single fire of the Endo ELIJAH stapler and a vascular cartridge. The remaining mesenteric vessels were taken down with the Harmonic Scalpel. The patient had consistent diffuse oozing throughout the procedure. After the mesentery was mobilized proximally and distally, it was clear that there was sufficient bowel length to perform resection with primary anastomosis without mobilizing the splenic flexure. We then created an access incision in the suprapubic position extending cephalad for a distance of approximately 10 cm. Incision was deepened down to the fascia. This was incised in the midline. Peritoneum was incised. Peritoneal cavity was explored anterior and a medium Alen wound protector was deployed into the wound. The sigmoid colon was brought up into the wound. Proximal and distal ends were clamped with Radha clamps and the bowel resected between these 2 points. An end-to-end colocolostomy was then performed with a 2-layer hand-sewn anastomosis as follows. The posterior wall of the anastomosis was performed with interrupted 3-0 Vicryl sutures. The inner posterior row of the anastomosis was performed with continuous running 3-0 Vicryl suture. This was continued anteriorly in a Carol fashion. The final anterior outer row of the anastomosis was performed with interrupted 3-0 Vicryl sutures. Upon completion, the anastomosis was intact without undue tension. The mesentery was partially closed with interrupted 3-0 Vicryl sutures to prevent internal herniation. Troublesome bleeding along the left pelvic sidewall was dealt with with direct inspection and cautery. Dr. Willis put in a couple of additional sutures in the bladder. The area was irrigated and aspirated with hemostasis ultimately secured with a small piece of Surgicel that was left in near the vas deferens and posterior to this in the pelvic floor. Gowns, gloves, and instruments were changed for a clean closure. All prior instruments were removed from the field. The peritoneum was closed with continuous running 2-0 Vicryl suture. The fascia was closed with #1 PDS suture. The umbilical fascial defect was repaired with #1 PDS suture. The skin of the 2 port sites was closed with 4-0 Monocryl suture as was the umbilical incision and these were closed with Dermabond. The primary skin closure of the access incision was closed with kyle. The patient was extubated and returned to the recovery room in satisfactory condition. Needle, sponge, and instrument count correct. COMPLICATIONS: None. Copy requested to: Dr. Champ Hui /[id number]/MODL MTDD
[2017-08-29] MEDS: D5W 1/2 NS W/ 20 KCl/L 1,000 ML IV SCH ×3 (02:11→19:25)
[2017-08-29] MEDS: HYDROmorphone HCL/NS/PF 0.4 MG/2 ML SYR IVP PRN ×10 (02:14→22:20)
[2017-08-29] MEDS: LORazepam 2 MG/ML INJ IVP PRN ×4 (05:16→20:44)
[2017-08-29 05:34] LABS: % IMMATURE GRANULYOCYTES 0.3 % (0.0-1.1); ABSOLUTE IMMATURE GRANULOCYTES 0.03 10^3/uL (0.00-0.10); ADD DIFF? NO; ADD MORPH? NO; ADD SCAN? NO; ATYPICAL LYMPHOCYTE FLAG 0 (0-99); FRAGMENT RBC FLAG 0 (0-99); HEMOGLOBIN 13.9 g/dL (13.7-17.5); LEFT SHIFT FLG 0 (0-99); LIPEMIA HEMOLYSIS FLAG 90 (0-99); MEAN CELL HEMOGLOBIN 32.8 pg (27.9-34.1); MEAN CELL HEMOGLOBIN CONCENTR. 36.6 g/dL (32.4-36.7); MEAN CELL VOLUME 89.6 fL (81.5-99.8); MEAN PLATELET VOLUME 9.4 fL (8.7-11.7); PLATELET CLUMPS FLAG 0 (0-99); PLATELET COUNT 123 10^3/uL (150-400); RED BLOOD CELL COUNT 4.24 10^6/uL (4.40-6.38); RED CELL DISTRIBUTION WIDTH 14.6 % (11.5-15.2)
[2017-08-29 05:43] LABS: ANION GAP 11 mEq/L (8-16); CARBON DIOXIDE 23 mEq/l (22-31); CHLORIDE 104 mEq/L (97-110); CREATININE 0.7 mg/dL (0.7-1.3); GLOMERULAR FILTRATION RATE > 60; GLUCOSE 134 mg/dL (70-100); POTASSIUM 4.5 mEq/L (3.5-5.2); SODIUM 138 mEq/L (134-144)
[2017-08-29 05:45] LABS: INR 1.12 (0.83-1.16); PROTIME(PATIENT) 14.3 SEC (12.0-15.0)
[2017-08-29 06:19] LABS: PFA COLLAGEN/EPINEPHRINE 106 sec (79-154)
[2017-08-29] MEDS: ALLOPURINOL 300 MG TAB PO SCH (08:04)
--- NOTE | 2017-08-29 08:58 | SOAPPROG ---
DIYA Progress Note Assessment/Plan: Assessment: s/p lap sigmoid colectomy with repair bladder fistula post op ileus Plan:continue sips of clears/IV fluids increased activity leave Cota in 72 hours then DC 08/29/17 08:55 Objective: platlets 126K Vital Signs Temp Pulse Resp BP Pulse Ox 36.6 C 81 16 113/78 96 08/29/17 07:51 08/29/17 07:51 08/29/17 07:51 08/29/17 07:51 08/29/17 07:51 Laboratory Results 08/29/17 05:02 08/29/17 05:02 08/28/17 08/29/17 08/30/17 05:59 05:59 05:59 Intake Total 4200 Output Total 4400 Balance -200 PT 14.3 SEC (12.0-15.0) 08/29/17 05:02 INR 1.12 (0.83-1.16) 08/29/17 05:02 Physical Exam - Physical Exam General Appearance: alert, no apparent distress Respiratory: lungs clear, normal breath sounds Cardiac/Chest: regular rate, rhythm Abdomen: normal bowel sounds, soft, distended, other (incisions uncomplicated) Neuro/Psych: alert, normal mood/affect, oriented x 3 ICD10 Worksheet Patient Problems: Problems Problem Status Onset Colovesical fistula Acute Sigmoid diverticulitis Acute
[2017-08-29] MEDS ORDERED: ENOXAPARIN 40 MG/0.4 ML SYR SC SCH (09:00)
--- NOTE | 2017-08-29 15:42 | ASMTCMCOM ---
CM Note CM Note Notes: CM spoke w/RN, anticipate pt will dc home w/ support of family when medically stable. CM available for any changes. Date Signed: 08/29/2017 03:42 PM Electronically Signed By:Elena Heredia RN
[2017-08-30] MEDS: D5W 1/2 NS W/ 20 KCl/L 1,000 ML IV SCH (03:33)
[2017-08-30] MEDS: HYDROmorphone HCL/NS/PF 0.4 MG/2 ML SYR IVP PRN ×3 (03:33→14:41)
[2017-08-30] MEDS: LORazepam 2 MG/ML INJ IVP PRN ×4 (03:38→21:23)
[2017-08-30 05:34] LABS: % IMMATURE GRANULYOCYTES 0.3 % (0.0-1.1); ABSOLUTE IMMATURE GRANULOCYTES 0.02 10^3/uL (0.00-0.10); ADD DIFF? NO; ADD MORPH? NO; ADD SCAN? NO; ATYPICAL LYMPHOCYTE FLAG 0 (0-99); FRAGMENT RBC FLAG 0 (0-99); HEMATOCRIT 34.8 % (40.0-51.0); HEMOGLOBIN 12.3 g/dL (13.7-17.5); LEFT SHIFT FLG 0 (0-99); LIPEMIA HEMOLYSIS FLAG 90 (0-99); MEAN CELL HEMOGLOBIN 32.5 pg (27.9-34.1); MEAN CELL HEMOGLOBIN CONCENTR. 35.3 g/dL (32.4-36.7); MEAN CELL VOLUME 92.1 fL (81.5-99.8); MEAN PLATELET VOLUME 9.8 fL (8.7-11.7); PLATELET CLUMPS FLAG 0 (0-99); PLATELET COUNT 111 10^3/uL (150-400); RED BLOOD CELL COUNT 3.78 10^6/uL (4.40-6.38); RED CELL DISTRIBUTION WIDTH 14.8 % (11.5-15.2)
--- NOTE | 2017-08-30 07:00 | SOAPPROG ---
SOAP Progress Note Assessment/Plan: Assessment: s/p lap sigmoid colectomy with repair bladder fistula post op ileus mild thrombocytopenia Plan:continue clear liquids/stop IV fluids increased activity leave Cota in/DC tomorrow AM 08/29/17 08:55 08/30/17 06:58 Subjective: still requiring Dilaudid almost hourly/discussed relationship of narcotics and post op recovery no flatus Objective: Vital Signs Temp Pulse Resp BP Pulse Ox 36.6 C 83 18 127/84 H 95 08/30/17 03:29 08/30/17 03:29 08/30/17 03:29 08/30/17 03:29 08/30/17 03:29 Laboratory Results 08/30/17 04:40 08/29/17 05:02 08/29/17 08/30/17 08/31/17 05:59 05:59 05:59 Intake Total 4200 3809 Output Total 4400 5200 Balance -200 -1391 PT 14.3 SEC (12.0-15.0) 08/29/17 05:02 INR 1.12 (0.83-1.16) 08/29/17 05:02 Physical Exam - Physical Exam General Appearance: no apparent distress Respiratory: lungs clear Cardiac/Chest: regular rate, rhythm Abdomen: normal bowel sounds, soft, distended, other (incisions o.k.) Neuro/Psych: alert, normal mood/affect, oriented x 3 ICD10 Worksheet Patient Problems: Problems Problem Status Onset Colovesical fistula Acute Sigmoid diverticulitis Acute
[2017-08-30] MEDS: OXYCODONE/APAP 5/325 TAB PO PRN ×3 (08:14→21:17)
[2017-08-30] MEDS: ALLOPURINOL 300 MG TAB PO SCH (08:14)
[2017-08-30] MEDS: SENNOSIDES/DOCUSATE SODIUM TAB PO SCH ×2 (08:14→21:17)
[2017-08-30 19:58] VITALS: O2SAT 95
[2017-08-31 05:27] LABS: HEMATOCRIT 34.5 % (40.0-51.0); MEAN CELL HEMOGLOBIN 31.8 pg (27.9-34.1); MEAN CELL HEMOGLOBIN CONCENTR. 34.8 g/dL (32.4-36.7); MEAN CELL VOLUME 91.5 fL (81.5-99.8); RED BLOOD CELL COUNT 3.77 10^6/uL (4.40-6.38); RED CELL DISTRIBUTION WIDTH 14.6 % (11.5-15.2)
[2017-08-31 07:28] VITALS: BP 114/7; PULSE 86; RESP 16; TEMP 97.6
[2017-08-31] MEDS: ALLOPURINOL 300 MG TAB PO SCH (07:29)
[2017-08-31] MEDS: OXYCODONE/APAP 5/325 TAB PO PRN ×2 (07:29→12:56)
[2017-08-31] MEDS: SENNOSIDES/DOCUSATE SODIUM TAB PO SCH (07:29)
--- NOTE | 2017-08-31 14:00 | SOAPPROG ---
SOAP Progress Note Assessment/Plan: Assessment: s/p lap sigmoid colectomy with repair bladder fistula post op ileus-resolving mild thrombocytopenia-improved after stopping Lovenox Plan:advance to low residue increased activity anticipate discharge later today 08/29/17 08:55 08/30/17 06:58 08/31/17 13:59 Objective: Vital Signs Temp Pulse Resp BP Pulse Ox 36.4 C 86 16 114/7 L 95 08/31/17 07:25 08/31/17 07:25 08/31/17 07:25 08/31/17 07:25 08/31/17 07:25 Laboratory Results 08/31/17 05:04 08/29/17 05:02 08/30/17 08/31/17 09/01/17 05:59 05:59 05:59 Intake Total 3809 2422 Output Total 5200 3900 550 Balance -1391 -1478 -550 PT 14.3 SEC (12.0-15.0) 08/29/17 05:02 INR 1.12 (0.83-1.16) 08/29/17 05:02 Physical Exam - Physical Exam General Appearance: alert, no apparent distress Cardiac/Chest: regular rate, rhythm Abdomen: non-tender, soft, distended, other (incisions healing without signs of infection) ICD10 Worksheet Patient Problems: Problems Problem Status Onset Colovesical fistula Acute Sigmoid diverticulitis Acute
--- NOTE | 2017-09-01 09:44 | ASDISCHSUM ---
Discharge Information Plan Status:Home with No Needs Medically Cleared to Leave:08/30/2017 Discharge Date:08/31/2017 02:40 PM CM D/C Disposition: ADT D/C Disposition:Home, Routine, Self-Care Projected Discharge Date:08/31/2017 12:00 AM Transportation at D/C: Discharge Delay Reason: Follow-Up Date:08/31/2017 12:00 AM Discharge Slot: Final Diagnosis: Placement Information Patient Contact Information Contact Name:SANJAY Relationship:Daughter Address: Work Phone: City: [facility] Phone: State/Zip Code: Email: Financial Information Financial Class:HMO and PPO Plans Primary Plan Desc:RICK ESTRADA PPO Primary Plan Number:[id number] Secondary Plan Desc: Secondary Plan Number: Assessment Information [facility] CM Progress Note CM Note CM Note Notes: CM spoke w/RN, anticipate pt will dc home w/ support of family when medically stable. CM available for any changes. Date Signed: 08/29/2017 03:42 PM Electronically Signed By:Elena Heredia RN Intervention Information
== END 2017-08-31 14:40 | disposition home or self-care (01) | DRG 330 ==
LOC: F3N 09:20 → F3E 16:33
PROVIDERS: ADMIT Surgery; ATTEND Surgery
PROC: 0DTN0ZZ Resection of Sigmoid Colon, Open Approach (ICD-10-PCS; principal; 2017-08-28 10:30)
PROC: 0TQB0ZZ Repair Bladder, Open Approach (ICD-10-PCS; principal; 2017-08-28 10:30)
DX: K57.32 Diverticulitis of large intestine without perforation or abscess without bleeding (principal); N32.1 Vesicointestinal fistula; K91.89 Other postprocedural complications and disorders of digestive system; D69.6 Thrombocytopenia, unspecified
CPT/HCPCS: J0694; J1100; J1170; J1650; J2001; J2060; J2250; J2405; J2704; J3010